=== PATIENT | female | born 1955 | race Caucasian/White ===

== ENCOUNTER 2017-12-24 10:20 | Outpatient (CLI) | payer OTHER ==
--- NOTE | 2017-12-24 11:19 | RAD ---
4 VIEWS LEFT KNEE: Date: 12/24/17 HISTORY: Pain. COMPARISON: None. FINDINGS: No joint effusion. No fracture or malalignment. Mild loss of the medial compartment joint space juliano t. IMPRESSION: Unremarkable 4 views left knee. POS: [facility]
== END 2017-12-24 10:21 | disposition home or self-care (01) ==
LOC: RAD 10:20
PROVIDERS: ATTEND Nurse Practitioner Family
DX: M25.562 Pain in left knee (principal)